=== PATIENT | male | born 1960 | race Caucasian/White ===

== ENCOUNTER 2017-06-22 10:09 | Inpatient (IN) ==
[2017-06-22] MEDS ORDERED: Aspirin 81 MG TAB.CHEW PO ONE (10:16)
[2017-06-22] MEDS ORDERED: Ondansetron 4 MG/2 ML VIAL IVP ONE (10:16)
[2017-06-22] MEDS ORDERED: *HR* FentaNYL (PF) 100 MCG/2 ML VIAL IVP ONE (10:17)
--- NOTE | 2017-06-22 10:18 | Emergency Department Note ---
Disposition Clinical Impression: Chest pain Qualifiers: Chest pain type: unspecified Qualified Code(s): R07.9 - Chest pain, unspecified Disposition: Admitted As Inpatient Condition: Good Referrals: Scott Rolon MD [Primary Care Provider] - Forms: ED Satisfaction Letter Time of Disposition: 12:54 General Adult HPI - General Chief complaint: ED Chest Pain Stated complaint: chest pain Time Seen by Provider: 06/22/17 10:12 Nursing Notes Reviewed: Yes Vital Signs Reviewed: Yes - History of Present Illness HPI Narrative: 2 week history of left-sided chest pain. Sharp in nature. Radiates down left arm. No alleviating factors. Provoked by deep breathing. Does have a productive cough with yellow sputum. - Related Data Home Medications Medication Instructions Recorded Confirmed No Known Home Drugs 06/22/17 06/22/17 Allergies Allergy/AdvReac Type Severity Reaction Status Date / Time No Known Allergies Allergy Verified 07/01/16 14:06 All systems ED: reviewed and negative except as stated. Constitutional: Reports: chills. Denies: fever ENT ED: Denies: congestion Cardiovascular: Reports: chest pain. Denies: palpitations, syncope Respiratory: Reports: cough, dyspnea, sputum production (Yellow). Denies: wheezes Gastrointestinal: Denies: abdominal pain, nausea, vomiting, diarrhea Genitourinary: Denies: urgency, dysuria, frequency Musculoskeletal: Denies: back pain, neck pain Integumentary: Denies: rash, abrasion Neurological: Denies: headache, weakness Past Medical History - Past Medical History Attestation: Yes The following information was validated with the patient. Source: patient Medical history: Reports: cancer, COPD Psychiatric history: Reports: depression - Social History Smoking Status: Current every day smoker Smokeless Tobacco Status: No Alcohol use: Reports: none Drug use: Reports: none Physical Exam - General Limitations: no limitations General appearance: alert, in no apparent distress - Head Head exam: atraumatic, normocephalic, normal inspection - Eye Eye exam: Present: normal appearance, PERRL, EOMI. Absent: scleral icterus - ENT ENT exam: normal exam, normal oropharynx, mucous membranes moist - Neck Neck exam: Present: normal inspection, full ROM, trachea midline - Chest Chest inspection: Present: normal inspection, symmetric chest wall rise. Absent : tenderness - Respiratory Respiratory exam: Present: normal lung sounds bilaterally. Absent: respiratory distress, accessory muscle use - Cardiovascular Cardiovascular exam: Present: regular rate, normal rhythm, normal heart sounds - Abdominal Exam Abdominal exam: Present: soft, Non-Tender. Absent: distention, guarding, rebound, rigidity, organomegaly - Extremities Exam Extremities exam: Present: normal inspection, full ROM, normal capillary refill. Absent: tenderness, pedal edema - Back Exam Back exam: Present: normal inspection, full ROM. Absent: tenderness - Neurological Exam Neurological exam: Present: alert, oriented X3 - Psychiatric Psychiatric exam: Present: normal affect, normal mood - Skin Skin exam: Present: warm, dry, intact, normal color. Absent: rash, cyanosis, diaphoresis Course Course Narrative: 2 week history of left-sided chest pain. Does have associated nausea as well as shortness of breath. Is a smoker. Does have a cardiac history in his family. No cardiac history for him. Does have a history of COPD. We will provide patient with aspirin and nitroglycerin. We will get an EKG as well as a chest x-ray and basic lab workup on patient. He states that he has had no relieving factors with this. The patient has been intermittent normal left side of his chest. Does also radiate down his left arm. Lung sounds are Clear. He does report a productive cough with a yellow sputum. - Reevaluation(s) Reevaluation #1: Pt does have some ST depressions in his lateral leads. Does have a significant family history of cardiac problems he is a smoker. He had significant relief with 3 nitroglycerin. He went down to a 1 out of 10 on his chest pain. We will admit patient to the hospital for chest pain. - Consultations Consultation #1: Dr Barker accepted Pt in stable condition. Time: 12:47 Vital Signs Temperature 97.9 F 06/22/17 10:13 Pulse Rate 78 06/22/17 10:13 Respiratory Rate 15 06/22/17 10:13 Blood Pressure 171/83 06/22/17 10:13 O2 Sat by Pulse Oximetry 100 06/22/17 10:13 Temperature 97.9 F 06/22/17 10:32 Pulse Rate 66 06/22/17 12:16 Respiratory Rate 15 06/22/17 12:16 Blood Pressure 115/76 06/22/17 12:16 O2 Sat by Pulse Oximetry 99 06/22/17 12:16 Oxygen Delivery Oxygen Delivery Room Air Medical Decision Making - Medical Records Medical records reviewed: Yes I reviewed the patient's medical records. - Lab Data Lab results reviewed: Yes I reviewed the patient's lab results. Result diagrams: 06/22/17 10:25 06/22/17 10:25 Lab Results 06/22/17 06/22/17 Range/Units 10:25 10:25 WBC 9.6 (4.3-11.1) K/mcL RBC 5.00 (4.19-5.50) M/mcL Hgb 15.7 (12.9-16.9) g/dL Hct 46.7 (37.5-50.1) % MCV 93.4 (83.0-100.0) fL MCH 31.4 (28.0-33.3) pg MCHC 33.6 (31.6-35.5) g/dL RDW 13.6 (11.5-14.5) % Plt Count 469 H (140-400) K/mcL MPV 8.8 L (9.4-12.4) fL Immature Gran % 0.2 (0-4) % Seg Neutrophils % 45.9 % Lymphocytes % 33.7 % Monocytes % 12.4 % Eosinophils % 6.2 % Basophils % 1.6 % Neutrophils # 4.4 (1.6-8.9) K/mcL Lymphocytes # 3.2 (0.6-4.6) K/mcL Monocytes # 1.2 (0.0-1.3) K/mcL Eosinophils # 0.6 (0.0-0.6) K/mcL Basophils # 0.2 (0.0-0.2) K/mcL Sodium 137 (136-145) mEq/L Potassium 4.1 (3.5-5.1) mEq/L Chloride 104 (98-107) mEq/L Carbon Dioxide 27 (23-29) mEq/L BUN 14 (6-20) mg/dL Creatinine 0.94 (0.70-1.30) mg/dL Est GFR ( Amer) > 60 (> 60) Est GFR (Non-Af Amer) > 60 (> 60) BUN/Creatinine Ratio 15 (6-26) Glucose 90 (70-105) mg/dL Calculated Osmolality 284 (280-300) Calcium 9.4 (8.6-10.3) mg/dL Troponin I 0.03 (< 0.04) ng/mL - Radiology Data Radiology results reviewed: Yes I reviewed the patient's radiology results. Heart Score - Score History: Moderately Suspicious EKG: Non Specific repolarisation Disturbance Age: 45-65 Risk Factors: 1-2 risk factors Troponin: Less than normal limit HEART Score Total: 4
--- NOTE | 2017-06-22 10:20 | Emergency Department Note ---
Disposition Clinical Impression: Chest pain Disposition: Admitted As Inpatient Condition: Good General Adult HPI - General Chief complaint: ED Chest Pain Stated complaint: chest pain Time Seen by Provider: 06/22/17 10:12 Nursing Notes Reviewed: Yes Vital Signs Reviewed: Yes - Related Data Home Medications Medication Instructions Recorded Confirmed No Known Home Drugs 06/22/17 06/22/17 Allergies Allergy/AdvReac Type Severity Reaction Status Date / Time No Known Allergies Allergy Verified 07/01/16 14:06 Past Medical History - Past Medical History Medical history: Reports: cancer, COPD Psychiatric history: Reports: depression - Social History Smoking Status: Current every day smoker Smokeless Tobacco Status: No Alcohol use: Reports: none Drug use: Reports: none Course Vital Signs Temperature 97.9 F 06/22/17 10:13 Pulse Rate 78 06/22/17 10:13 Respiratory Rate 15 06/22/17 10:13 Blood Pressure 171/83 06/22/17 10:13 O2 Sat by Pulse Oximetry 100 06/22/17 10:13 Temperature 98.0 F 06/22/17 13:53 Pulse Rate 66 06/22/17 13:53 Respiratory Rate 18 06/22/17 13:53 Blood Pressure 118/77 06/22/17 13:53 O2 Sat by Pulse Oximetry 99 06/22/17 13:55 Oxygen Delivery Oxygen Delivery Room Air Medical Decision Making - MDM Narrative Medical decision making narrative: This documentation is done with the assistance of Dragon dictation. Despite efforts made to ensure accuracy, there may be inaccuracies in bed maker or spelling and typographical errors. I examined this patient and my medical decision-making was reviewed with the Resident Physician. I agree with the documented findings, disposition and treatment plan as described except to the extent set forth below. Patient seen on arrival to bedside with Dr. Mabry, I agree with his evaluation and management plan, supervised the care the patient's stay. Patient's had intermittent chest pain for 2 weeks. Does not take any medicines. He is a smoker. He has been coughing up yellow sputum. Denies any chest injuries. I do a cardiac workup on him and reassess. Most likely will need admission. 1013 hrs.: Patient in EKG performed shows a sinus rhythm rate is 80, VT interval is 1:15 QRS is 85 QTc is 388, does have some depression in the inferior leads and flattening. Compared this with EKG that was done in 2017 shows no changes except for rate. And does have a flipped T-wave in lead 3 but not aVF or lead 2. 1136 hrs.: Patient's pain-free at this time. We will recheck an EKG and speak with hospitalist for admission. Impressions chest pain rule out ACS. His heart score is a 4. Chest X-Ray 06/22/17 10:29 IMPRESSION: COPD. No acute cardiopulmonary process. D/ / 06/22/2017 11:06:57 Mirtha Rhodes MD / sia Interpreting Provider: Mirtha Rhodes MD 1202 hrs.: Repeat EKG sinus rhythm, rate is 62, QRS is 72, QTC is 391, no signs of ischemia, chest pain is resolved. Patient hospice for admission - Lab Data Result diagrams: 06/22/17 10:25 06/22/17 10:25 Lab Results 06/22/17 06/22/17 Range/Units 10:25 10:25 WBC 9.6 (4.3-11.1) K/mcL RBC 5.00 (4.19-5.50) M/mcL Hgb 15.7 (12.9-16.9) g/dL Hct 46.7 (37.5-50.1) % MCV 93.4 (83.0-100.0) fL MCH 31.4 (28.0-33.3) pg MCHC 33.6 (31.6-35.5) g/dL RDW 13.6 (11.5-14.5) % Plt Count 469 H (140-400) K/mcL MPV 8.8 L (9.4-12.4) fL Immature Gran % 0.2 (0-4) % Seg Neutrophils % 45.9 % Lymphocytes % 33.7 % Monocytes % 12.4 % Eosinophils % 6.2 % Basophils % 1.6 % Neutrophils # 4.4 (1.6-8.9) K/mcL Lymphocytes # 3.2 (0.6-4.6) K/mcL Monocytes # 1.2 (0.0-1.3) K/mcL Eosinophils # 0.6 (0.0-0.6) K/mcL Basophils # 0.2 (0.0-0.2) K/mcL Sodium 137 (136-145) mEq/L Potassium 4.1 (3.5-5.1) mEq/L Chloride 104 (98-107) mEq/L Carbon Dioxide 27 (23-29) mEq/L BUN 14 (6-20) mg/dL Creatinine 0.94 (0.70-1.30) mg/dL Est GFR ( Amer) > 60 (> 60) Est GFR (Non-Af Amer) > 60 (> 60) BUN/Creatinine Ratio 15 (6-26) Glucose 90 (70-105) mg/dL Calculated Osmolality 284 (280-300) Calcium 9.4 (8.6-10.3) mg/dL Troponin I 0.03 (< 0.04) ng/mL
[2017-06-22 10:38] LABS: Basophils # 0.2 K/mcL (0.0-0.2); Basophils % 1.6 %; Eosinophils # 0.6 K/mcL (0.0-0.6); Eosinophils % 6.2 %; Hematocrit 46.7 % (37.5-50.1); Hemoglobin 15.7 g/dL (12.9-16.9); Immature Granulocytes % 0.2 % (0-4); Lymphocytes # 3.2 K/mcL (0.6-4.6); Lymphocytes % 33.7 %; Mean Corpuscular HGB Conc 33.6 g/dL (31.6-35.5); Mean Corpuscular Hemoglobin 31.4 pg (28.0-33.3); Mean Corpuscular Volume 93.4 fL (83.0-100.0); Mean Platelet Volume 8.8 fL (9.4-12.4); Monocytes # 1.2 K/mcL (0.0-1.3); Monocytes % 12.4 %; Neutrophils # 4.4 K/mcL (1.6-8.9); Platelet Count 469 K/mcL (140-400); Red Cell Distribution Width 13.6 % (11.5-14.5); Segmented Neutrophils % 45.9 %
[2017-06-22] MEDS: Nitroglycerin 0.4 MG TAB.SUBL SL ONE ×3 (10:40→10:55)
[2017-06-22 11:01] LABS: Troponin I 0.03 ng/mL (< 0.04)
[2017-06-22 11:02] LABS: BUN/Creatinine Ratio 15 (6-26); Blood Urea Nitrogen 14 mg/dL (6-20); Calcium 9.4 mg/dL (8.6-10.3); Carbon Dioxide 27 mEq/L (23-29); Chloride 104 mEq/L (98-107); Glucose 90 mg/dL (70-105); Osmolality,Calculated 284 (280-300); Potassium 4.1 mEq/L (3.5-5.1); Sodium 137 mEq/L (136-145); eGFR For African Americans > 60 (> 60); eGFR For Non-African Americans > 60 (> 60)
--- NOTE | 2017-06-22 14:27 | Internal Med History&Physical ---
Date of Encounter: 06/22/17 Time of Encounter: 14:21 Assessment and Plan (1) Chest pain Current visit: Yes Status: Acute Patient has 3 weeks of chest pain, most of them exertional, he does have risk factor for history of smoking family history of cad. Chest pain also is worsening by taking deep breaths and a cough, I will check d- dimer if it is positive will need a CT PE study place Tele, follow up 3 trop TTE and stress test Qualifiers: Chest pain type: chest pain due to myocardial ischemia Qualified Code(s): I20.8 - Other forms of angina pectoris (2) Tobacco dependence Current visit: Yes Status: Acute Smoking cessation discussed, we will provide a nicotine patch, he smokes as 3 packs a day (3) COPD (chronic obstructive pulmonary disease) Current visit: Yes Status: Acute We will give her nebulizer as needed, and to steroids inhaler Qualifiers: COPD type: chronic bronchitis Chronic bronchitis type: mixed simple and mucopurulent Qualified Code(s): J41.8 - Mixed simple and mucopurulent chronic bronchitis Internal Medicine - H&P: HPI Chief complaint: chest pain Admitted From: Home Plans for Post Hospital Care: Home History of present illness: Mr. Carballo is a 56 year old male who was in the significant medical history presented to ER for chest pain. Chest pain started as 3 weeks ago, on and off, located to left chest, pressure-like, lasting for few hours, associated with dizziness, shortness of breath, palpation. This morning he had a severe episode , pain is 8 out of 10 constant, he received 3 nitroglycerin, pain down to 1 out of 10. ER, trop is negaitve CXR showed COPD. EKG has some ST depressions in his lateral leads. Patient is haeavy smoker and a significant family history of CAD. admit for chest pain work up. Past Med Surg Social Fam HX - Past Medical History Medical history: cancer, COPD Psychiatric history: depression - Social History Smoking Status: Current every day smoker Smokeless Tobacco Status: No Alcohol use: none Drug use: none - Family History Mother Hx Family Cardiac Disorders: Yes Father Hx Family Cardiac Disorders: Yes Internal Medicine - H&P: Meds No Known Home Drugs 06/22/17 [History] 3 Allergy/AdvReac Type Severity Reaction Status Date / Time No Known Allergies Allergy Verified 07/01/16 14:06 All Systems PM: A 10-system review of systems was performed and is negative for pertinent findings except as documented above in the HPI. - Constitutional Vitals: Temp Pulse Resp BP Pulse Ox 98.0 F 66 18 118/77 99 06/22/17 13:53 06/22/17 13:53 06/22/17 13:53 06/22/17 13:53 06/22/17 13:55 General appearance: Present: cooperative, A&O X 3, pleasant Exam: CONSTITUTIONAL: Patient appears as an age appropriate male well developed, in no acute distress. EYES Clear sclerae, bilateral pupils are equal, reactive to light and accommodation. Extraocular movements are intact RESPIRATORY: No accessory muscle use, bilateral reduced to auscultation, no wheezing, no crackles/rales. CARDIOVASCULAR: Regular heart rate, normal S1 and S2, no murmurs GASTROINTESTINAL: bowel sounds present, soft, no tenderness. No hepatosplenomegaly. No bilateral CVA tenderness MUSCULOSKELETAL: Joints in normal range of motion, no clubbing, no edema, no cyanosis. Bilateral peripheral pulses 2+ LYMPHATIC no lymphadenopathy in neck, groin and axilla bilaterally, no thyromegaly. NEUROLOGIC: CN II to XII are grossly intact, no focal neurological deficit. Deep tendon reflexes 2+ bilaterally. Normal light touch sensation to upper and lower extremity PSYCHIATRIC: Oriented x3, with good insight, mood is euthymic. No hallucinations or delusions. SKIN: Skin warm and dry, no rashes, no open wound. Internal Med - H&P Results - Labs CBC & Chem 7: 06/22/17 10:25 06/22/17 10:25
[2017-06-22] MEDS ORDERED: Nitroglycerin 0.4 MG TAB.SUBL SL PRN (14:32)
--- NOTE | 2017-06-22 14:50 | Electrocardiograph Report ---
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
[2017-06-22] MEDS ORDERED: Ipratropium/Albuterol Neb 3 ML IH PRN (14:52)
--- NOTE | 2017-06-22 14:59 | Electrocardiograph Report ---
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
[2017-06-22] MEDS: Nicotine 21 MG PATCH.TD24 TD SCH (15:28)
[2017-06-22] MEDS: Ringers Solution, Lactated 1,000 ML IVC SCH (15:28)
[2017-06-22] MEDS: Budesonide/Formoterol 80/4.5 MDI IH SCH ×2 (16:03→20:15)
[2017-06-22 17:14] LABS: Amphetamine Screen,Urine Negative ng/mL (Cutoff=1000); Barbiturate Screen,Urine Negative ng/mL (Cutoff=200); Benzodiazepines Screen,Urine Negative ng/mL (Cutoff=200); Cannabinoid Screen,Urine Negative ng/mL (Cutoff = 50); Cocaine Screen,Urine Negative ng/mL (Cutoff= 300); Opiate Screen,Urine Negative ng/mL (Cutoff=300); Phencyclidine Screen,Urine Negative ng/mL (Cutoff=25)
[2017-06-22] MEDS ORDERED: *HR* Heparin 5,000 UNIT/ML VIAL IVP ONE (17:51)
[2017-06-22] MEDS ORDERED: *HR* Heparin 5,000 UNIT/ML VIAL IVP PRN ×2 (17:51)
[2017-06-22 18:16] LABS: Hematocrit 42.3 % (37.5-50.1); Hemoglobin 14.4 g/dL (12.9-16.9); Mean Corpuscular Hemoglobin 31.2 pg (28.0-33.3); Mean Corpuscular Volume 91.6 fL (83.0-100.0); Platelet Count 410 K/mcL (140-400); Red Blood Count 4.62 M/mcL (4.19-5.50); Red Cell Distribution Width 13.4 % (11.5-14.5)
[2017-06-22 18:36] LABS: Prothrombin Time 10.3 Seconds (9.4-12.1)
[2017-06-22 18:39] LABS: Activated Partial Thrombo Time 26.7 Seconds (26.0-36.0)
[2017-06-22] MEDS: Heparin 25,000 UNIT/500 ML D5W 25,000 UNIT/500 ML BAG IVC SCH (19:02)
[2017-06-23] MEDS: Ringers Solution, Lactated 1,000 ML IVC SCH ×3 (01:41→21:21)
[2017-06-23] MEDS: *HR* Morphine 2 MG/ML SYRINGE IVP PRN ×3 (01:41→21:20)
[2017-06-23 01:48] LABS: Basophils # 0.1 K/mcL (0.0-0.2); Eosinophils # 0.7 K/mcL (0.0-0.6); Eosinophils % 6.9 %; Hematocrit 39.9 % (37.5-50.1); Hemoglobin 13.7 g/dL (12.9-16.9); Immature Granulocytes % 0.3 % (0-4); Immature Platelets 2.1 % (1.1-6.1); Lymphocytes # 4.4 K/mcL (0.6-4.6); Lymphocytes % 41.5 %; Mean Corpuscular HGB Conc 34.3 g/dL (31.6-35.5); Mean Corpuscular Hemoglobin 31.8 pg (28.0-33.3); Mean Corpuscular Volume 92.6 fL (83.0-100.0); Mean Platelet Volume 9.5 fL (9.4-12.4); Monocytes # 0.9 K/mcL (0.0-1.3); Monocytes % 8.5 %; Neutrophils # 4.5 K/mcL (1.6-8.9); Platelet Count 435 K/mcL (140-400); Red Blood Count 4.31 M/mcL (4.19-5.50); Red Cell Distribution Width 13.4 % (11.5-14.5); Segmented Neutrophils % 41.8 %
[2017-06-23 01:53] LABS: Prothrombin Time 10.3 Seconds (9.4-12.1)
[2017-06-23 02:11] LABS: Alanine Aminotransferase 17 Units/L (7-52); Albumin 3.7 g/dL (3.5-5.7); Albumin/Globulin Ratio 1.7 (1.1-2.2); Alkaline Phosphatase 69 Units/L (34-104); Aspartate Amino Transferase 17 Units/L (13-39); BUN/Creatinine Ratio 13 (6-26); Bilirubin,Total 0.4 mg/dL (0.3-1.0); Blood Urea Nitrogen 12 mg/dL (6-20); Carbon Dioxide 27 mEq/L (23-29); Chloride 107 mEq/L (98-107); Globulin 2.2 g/dL (2.4-3.5); Glucose 107 mg/dL (70-105); Osmolality,Calculated 288 (280-300); Potassium 3.8 mEq/L (3.5-5.1); Sodium 139 mEq/L (136-145); Total Protein 5.9 g/dL (6.4-8.9); eGFR For African Americans > 60 (> 60); eGFR For Non-African Americans > 60 (> 60)
[2017-06-23] MEDS ORDERED: Regadenoson 0.4 MG/5 ML SYRINGE IVP ONE (06:14)
--- NOTE | 2017-06-23 09:21 | Cardiology Consult Note ---
Date of Encounter: 06/23/17 Time of Encounter: 09:19 Assessment and Plan (1) Unstable angina Current Visit: Yes Status: Acute Crescendo angina currently CCS class III. Peak troponin 0.[address] depressions. Risks benefits and alternatives discussed with the patient regards to a left heart catheter and he agrees to proceed. We will start heparin ACS protocol and load Plavix Discussion w patient/family: The assessment and plan as outlined above was discussed with the patient and/or family members who expressed understanding and agreement. All questions were answered. Thank you for involving us in the care of your patient. Please call with any questions. History of Present Illness Consult date: 06/23/17 Consult reason: Chest pain Chief complaint: Chest Pain History of present illness: Mr. Carballo is a 56 year old male with history of smoking, previous hypertension , presents with chest pain exertional in nature ascribed as dull aching retrosternal associated with diaphoresis and shortness of breath and relieved with rest. EKG unremarkable however presents EKG shows some slight lateral ST changes. Peak troponin 0.04. Progressive symptoms over the last 2 weeks with onset of symptoms with lesser exertion. Past Med Surg Social Fam HX - Past Medical History Medical history: cancer, COPD Psychiatric history: depression - Social History Smoking Status: Current every day smoker Smokeless Tobacco Status: No Alcohol use: none Drug use: none - Family History Mother Hx Family Cardiac Disorders: Yes Father Hx Family Cardiac Disorders: Yes Medications and Allergies No Known Home Drugs 06/22/17 [History] 3 Allergy/AdvReac Type Severity Reaction Status Date / Time No Known Allergies Allergy Verified 07/01/16 14:06 All Systems Review: The remainder of the systems were reviewed and are negative Physical Examination Vital Signs, Last 4 Hours Temp Pulse Resp BP Pulse Ox 06/23/17 07:16 97.9 F 76 18 138/83 97 General: Conversant, No Apparent Distress HEENT: Atraumatic, Normocephaly, Mucus Membranes Moist Neck: No JVD, Normal carotid pulses Cardiac: Reg Rate and Rhythm, Normal S1 and S2, No Murmur Lungs: Normal Breath Sounds, No Wheeze, Rales, Rhonchi Neuro: Alert and responsive, No focal deficits noted Abdomen: Soft, Non-Tender Skin: No rashes noted on visualized skin Musculoskeletal: No Chest Wall Tenderness Extremities: No Clubbing, No Cyanosis, No Edema, Normal Pulses Results 06/23/17 00:58 06/23/17 00:58 Lab Results 06/22/17 06/22/17 06/22/17 14:46 16:33 18:02 WBC 9.6 Hgb 14.4 Hct 42.3 Plt Count 410 H INR APTT D-Dimer 446 Sodium Potassium Chloride Carbon Dioxide BUN Creatinine Glucose Calcium Magnesium Total Bilirubin AST ALT Alkaline Phosphatase Troponin I 0.04 H* 06/22/17 06/22/17 06/23/17 18:02 21:56 00:58 WBC 10.6 Hgb 13.7 Hct 39.9 Plt Count 435 H INR 1.0 APTT 26.7 D-Dimer Sodium Potassium Chloride Carbon Dioxide BUN Creatinine Glucose Calcium Magnesium Total Bilirubin AST ALT Alkaline Phosphatase Troponin I < 0.03 06/23/17 06/23/17 06/23/17 00:58 00:58 00:58 WBC Hgb Hct Plt Count INR 1.0 APTT 66.0 H D D-Dimer Sodium 139 Potassium 3.8 Chloride 107 Carbon Dioxide 27 BUN 12 Creatinine 0.92 Glucose 107 H Calcium 9.0 Magnesium 2.0 Total Bilirubin 0.4 AST 17 ALT 17 Alkaline Phosphatase 69 Troponin I 06/23/17 06/23/17 05:06 05:06 WBC Hgb Hct Plt Count INR APTT 45.5 H D-Dimer Sodium Potassium Chloride Carbon Dioxide BUN Creatinine Glucose Calcium Magnesium Total Bilirubin AST ALT Alkaline Phosphatase Troponin I 0.03 Consult Discharge Plan - Plan Referrals: Scott Rolon MD [Primary Care Provider] -
[2017-06-23] MEDS: Budesonide/Formoterol 80/4.5 MDI IH SCH ×2 (10:25→19:56)
[2017-06-23] MEDS: Aspirin 81 MG TAB.CHEW PO SCH (11:57)
[2017-06-23] MEDS: Nicotine 21 MG PATCH.TD24 TD SCH ×3 (11:58→18:48)
[2017-06-23] MEDS ORDERED: ISOVUE-370 200 ML INFUS..BTL IV ONE (15:07)
[2017-06-23] MEDS ORDERED: Heparin 1,000 UNITS/500 mL 500 ML ONE (15:07)
[2017-06-23] MEDS ORDERED: Verapamil 5 MG/2 ML VIAL ONE (15:07)
[2017-06-23] MEDS ORDERED: 0.9 % Sodium Chloride 1,000 ML ONE ×2 (15:07→15:25)
[2017-06-23] MEDS ORDERED: *HR* Heparin 10,000 UNIT/10 ML VIAL ONE (15:07)
[2017-06-23] MEDS ORDERED: Nitroglycerin 1,000 MCG/10 ML VIAL IV ONE (15:08)
[2017-06-23] MEDS ORDERED: *HR* Midazolam HCl 2 MG/2 ML VIAL ONE (15:43)
[2017-06-23] MEDS ORDERED: *HR* FentaNYL (PF) 100 MCG/2 ML VIAL ONE (15:43)
--- NOTE | 2017-06-23 15:45 | Pre-Sedation Evaluation ---
Pre-sedation evaluation - Pre-sedation checklist Date of procedure: 06/23/17 Procedure: heart cath Recent Vitals: Last Vital Signs Temp 98.1 F 06/23/17 10:46 Pulse 70 06/23/17 10:46 Resp 20 06/23/17 10:46 BP 137/81 06/23/17 10:46 Pulse Ox 98 06/23/17 10:46 H&P (including ROS) documented in medical record: Yes Previous reaction to sedatives/anesthetics: No Dietary Status: NPO after Midnight Dentition: No loose teeth or bridges ASA Classification *see protocol: CLASS II-Mild systemic disease Plan of Care: Pt appropriate candidate for procedure/moderate/conscious sedation , Risks/benefits of procedure/sedation discussed w/ patient/family
[2017-06-23] MEDS ORDERED: Tirofiban 12.5 MG/250ML 12.5 MG/250 ML BAG ONE (16:06)
[2017-06-23] MEDS ORDERED: *HR* Ticagrelor 90 MG TABLET ONE (16:20)
[2017-06-23] MEDS ORDERED: Ondansetron 4 MG/2 ML VIAL IVP PRN (16:27)
[2017-06-23] MEDS ORDERED: Tirofiban 12.5 MG/250ML 12.5 MG/250 ML BAG IVC SCH (16:30)
--- NOTE | 2017-06-23 16:32 | Internal Med Progress Note ---
Date of Encounter: 06/23/17 Time of Encounter: 16:29 - Assessment and plan (1) Unstable angina Current Visit: Yes Status: Acute Assessment and plan: presented with chest pain and SOB. Troponin peaked at 0.04, EKG with mild lateral ST depressions. TTE with EF 60%, moderate diastolic dysfunction, mild- to-moderate mitral regurgitation, no wall motion abnormalities. Evaluated by cardiology who recommended left heart catheterization. Keep NPO, heparin gtt, plavix load. Cardiology following (2) COPD (chronic obstructive pulmonary disease) Current Visit: Yes Status: Acute Assessment and plan: per hx. CXR with hyperinflated lungs suggesting COPD. No evidence of exacerbation on exam. Continue breathing treatments, inhalers Qualifiers: COPD type: chronic bronchitis Chronic bronchitis type: mixed simple and mucopurulent Qualified Code(s): J41.8 - Mixed simple and mucopurulent chronic bronchitis (3) Tobacco dependence Current Visit: Yes Status: Acute Assessment and plan: Current smoker, cessation advised but not likely. Declining NRT at this time. (4) DVT prophylaxis Current Visit: Yes Status: Acute Assessment and plan: heparin gtt - Time Spent With Patient Total time spent is greater than 50% in coordination of care (as documented) at patient's floor/unit and/or counseling patient: - Constitutional Vitals: Temp Pulse Resp BP Pulse Ox 98.1 F 70 20 137/81 98 06/23/17 10:46 06/23/17 10:46 06/23/17 10:46 06/23/17 10:46 06/23/17 10:46 General appearance: Present: cooperative, A&O X 3, pleasant Internal Medicine: Result - Labs CBC & Chem 7: 06/23/17 00:58 06/23/17 00:58 Labs: Short CBC 06/22/17 06/23/17 Range/Units 18:02 00:58 WBC 9.6 10.6 (4.3-11.1) K/mcL Hgb 14.4 13.7 (12.9-16.9) g/dL Hct 42.3 39.9 (37.5-50.1) % Plt Count 410 H 435 H (140-400) K/mcL Neutrophils # 4.5 (1.6-8.9) K/mcL BMP 06/23/17 00:58 Sodium 139 Potassium 3.8 Chloride 107 Carbon Dioxide 27 BUN 12 Creatinine 0.92 Glucose 107 H Calcium 9.0 Cardiac Enzymes 06/22/17 06/22/17 06/23/17 Range/Units 16:33 21:56 05:06 Troponin I 0.04 H* < 0.03 0.03 (< 0.04) ng/mL Liver Function 06/23/17 Range/Units 00:58 Total Bilirubin 0.4 (0.3-1.0) mg/dL AST 17 (13-39) Units/L ALT 17 (7-52) Units/L Alkaline Phosphatase 69 (34-104) Units/L Albumin 3.7 (3.5-5.7) g/dL - ABG Interpretation ABG results: PT/INR, D-dimer PT 10.3 Seconds (9.4-12.1) 06/23/17 00:58 D-Dimer 446 ng/mLFEU (0-500) 06/22/17 14:46 - Impressions Impressions Echocardiogram 06/23/17 14:32 Impressions: LVEF 60%. Normal LV wall motion and thickening. Moderate left ventricular diastolic dysfunction. Normal right ventricular structure and function. Mild-moderate mitral regurgitation. No pulmonary hypertension. Left Ventricular Wall Motion: Rest Echo Findings All wall segments showed normal motion. Findings: Study Quality * Technically adequate exam. ECG Findings * Normal sinus rhythm. Left Ventricle * LVEF 60%. * Normal LV chamber size, wall thickness and function. * Moderate left ventricular diastolic dysfunction. Right Ventricle * Normal right ventricular structure and function. Left Atrium * Normal left atrial size. Right Atrium * Normal right atrial size. Mitral Valve * Normal mitral valve structure. * No mitral stenosis. * Mild-moderate mitral regurgitation. Aortic Valve * No aortic regurgitation. * Trileaflet aortic valve. * No aortic stenosis. Tricuspid Valve * Normal tricuspid valve structure. * Trace tricuspid regurgitation. * Estimated RA pressure is 3 mmHg. * Estimated RVSP is 30 mmHg. * No pulmonary hypertension. Pulmonic Valve * Pulmonic valve is not well visualized. * No pulmonic stenosis. * No pulmonic regurgitation. Pulmonary Artery * Pulmonary artery not well visualized. Aorta * Normally sized aortic root. Pericardium * There is no pericardial effusion present. Interatrial Septum * No evidence of PFO by color Doppler. IVC * Normal IVC dimensions and inspiratory collapse. Consult Discharge Plan - Plan Referrals: Scott Rolon MD [Primary Care Provider] -
--- NOTE | 2017-06-23 16:39 | Invasive Diagnostic Lab Proc ---
Name: Michele Carballo Date of Study: 06/23/2017 Date: 1960 Ht: 64.2in Medical Record#: [id number] Age: 56 Wt: 158.73lb Gender: Male BSA: 1.78 Order #: [id number] BMI: 27.1 Physicians Procedure Physician: Anselmo Villarreal MD, [facility] Referring MD: Referring MD: Staff Name Position Time In Franca Haines RT (R) Monitor 03:29 PM AinsleyBrandy RT (R) Scrub 03:29 PM Dean Kirkland RN Ticketing Clerk 03:29 PM Sera Kumar RN Ticketing Clerk 03:29 PM Procedures Performed Procedure L HRT ARTERY/VENTRICLE ANGIO PRQ CARD OMAR STENT W/ANGIO 1 VSL Pre-Procedure Checklist Informed consent is complete signed and on chart. H&P is on chart. ID band is on and ID verified with patient. Patient NPO for procedure The procedure was described for the patient and questions were answered. Blood Pressure: 138/83 ECG is on chart. Plan of Care Patient will tolerate the procedure without complications. Adequate level of comfort will be maintained. Hemodynamics will remain stable Patient will recover from procedure without complications. Respiratory function will be maintained. Cardiac rhythm will remain stable. Patient temperature will be maintained. Patient and/or family have verbalized understanding of the procedure. Patient Education Chief Complaint/Reason for Test: Cardiac Cath Developmental Category: Adult (18-64 years) Developmentally Appropriate for Age: Yes Learning Barriers: None Education Needs: Procedure Education Method: Verbal Information Taught: Cardiac Cath Educational Evaluation: Able to repeat information Intravenous Access Time IV Size Location DC'd Fluid/Drip Rate Units RN 03:30 PM 20g 1 03/26" Patent On Arrival Rt Antecubital 0.9NaCl 25 ml/hr Dean Kirkland RN Allergies NKDA Vital Signs Time BP (mmHg) HR (bpm) O2 Sat. RR (bpm) LOC 03:30 PM 138 / 83 76 97 % 16 5 = Fully awake and oriented or at pre-proc level 03:29 PM / % 5 = Fully awake and oriented or at pre-proc level 03:29 PM / % 5 = Fully awake and oriented or at pre-proc level 03:44 PM / % 4 = Oriented but drowsy 03:59 PM / % 4 = Oriented but drowsy 03:46 PM 157 / 76 65 100 % 03:50 PM 153 / 71 67 100 % 03:55 PM 124 / 61 66 100 % 04:00 PM 124 / 66 78 92 % 04:05 PM 136 / 65 70 95 % 04:10 PM 123 / 66 72 94 % 04:15 PM 138 / 76 71 96 % 04:20 PM 127 / 74 70 97 % 04:14 PM / % 4 = Oriented but drowsy Procedural Medications Time Medication Dose Units Method Given By 03:55 PM Oxygen 2 L/min nasal cannula Dean Kirkland RN 03:55 PM Versed 2 mg Intravenous Dean Kirkland RN 03:55 PM Fentanyl 50 mcg Intravenous Dean Kirkland RN 03:55 PM Lidocaine 2% 0.5 ml Subcutaneous Anselmo Villarreal MD, FACC 03:56 PM Heparin 4000 units Nitroglycerin 200 mcg Verapamil 2.5 mg Intraarterial Anselmo Villarreal MD, FACC 04:04 PM Aggrastat Bolus: 37.5 ml Intravenous Dean Kirkland RN 04:04 PM Aggrastat 12.5mg/250ml 13.5 ml Intravenous Dean Kirkland RN 04:08 PM Nitroglycerin 200 mcg Intracoronary Anselmo Villarreal MD 04:09 PM Heparin 2000 units Intravenous Dean Kirkland RN 04:22 PM Brilinta 180 mg Orally Dean Kirkland RN ASA Classification: CLASS II- Mild systemic disease (i.e. well-controlled diabetes, hypertension, asthma, cigarette smoking) Ju Score Preprocedure Postprocedure Activity 2- Moves 4 extremities sustained head lift Activity 2- Moves 4 extremities sustained head lift Circulation 2- SBP +/= 20 points of pre-anesthetic level Circulation 2- SBP +/= 20 points of pre-anesthetic level Consciousness 2- Awake and alert oriented x 3 Consciousness 2- Awake and alert oriented x 3 O2 Saturation 2- Able to maintain O2 satruation of 92% on room air O2 Saturation 2- Able to maintain O2 satruation of 92% on room air Respiratory 2- Able to deep breathe and cough well Respiratory 2- Able to deep breathe and cough well Total Score 10 Total Score 10 Contrast Agent: Isovue Diagnostic Contrast: 112 ml Total Contrast: 112 ml Fluoro Dose: 619 mGy Procedure Log Time Note Enter By 03:29 PM Pt arrived to chemical processing laborer 2 at 15:29 twilson 03:29 PM Patient charges- Angio tray pack, Navilyst 3mm J, Pulse Oximetry and ACIST tubing and transducer twilson 03:29 PM IV Supplies used: J loop Angio Cath. twilson 03:29 PM Case Delayed no twilson 03:29 PM Franca Haines RT (R) Position: Monitor Time in: 15:29 twilson 03:29 PM Brandy Schmitz RT (R) Position: Scrub Time in: 15: twilson 03:29 PM Dean Kirkland RN Position: Ticketing Clerk Time in: 15: twilson 03:29 PM Sera Kumar RN Position: Ticketing Clerk Time in: 15: twilson 03:29 PM Time: 15:29 Patient comfortable and pain free: Yes twilson 03:29 PM Time: 15:LOC: 5 = Fully awake and oriented or at pre-proc level twilson 03:39 PM Physician arrived 15:39 twilson 03:39 PM Meet and greet completed twilson 03:39 PM Sign in performed according to hospital policy. twilson 03:39 PM Procedure start 15:39 twilson 03:39 PM CathStat 03:44 PM Vitals capture started with the following parameters, Patient=Adult, Interval=5 min, Initial Lretccti=935 mmHg, Deflation Rate=3 mmHg, Cuff placed on Right Arm 03:44 PM Time: 15:29 Patient comfortable and pain free: Yes twilson 03:44 PM Time: 15:29LOC: 5 = Fully awake and oriented or at pre-proc level twilson 03:44 PM Hair removed from procedure site in procedure lab using clippers. Right wrist prepped with Chloraprep by Franca Haines RT (R), then patient was draped. Skin intact. twilson 03:45 PM Hair removed from procedure site in procedure lab using clippers. Right groin prepped with Chloraprep by Sera Kumar RN, then patient was draped. Skin intact. twilson 03:46 PM HR=65 bpm, NGBP=316/76 mmhg, AzY1=874.0 % 03:47 PM Clinical Presentation: Unstable angina twilson 03:48 PM Pressure channel 1 zeroed. 03:50 PM HR=67 bpm, ZZBZ=932/71 mmhg, UhE2=590.0 % 03:51 PM ASA Class CLASS II- Mild systemic disease (i.e. well-controlled diabetes, hypertension, asthma, cigarette smoking) twilson 03:55 PM Time: 15:55 Oxygen on at 2 L/min per nasal cannula by Dean Kirkland RN : PM Time: 15:55 Versed 2 mg Intravenous Given by Dean Kirkland RN : PM Time: 15:55 Fentanyl 50 mcg Intravenous Given by Dean Kirkland RN ilson :55 PM HR=66 bpm, VMKP=373/61 mmhg, JkQ8=954.0 % 03:55 PM Time out performed according to hospital policy PM Time: 15:55 0.5 ml Lidocaine 2% to right radial Subcutaneous Given by Anselmo Villarreal MD, FACC twilson :56 PM Access obtained by percutaneous puncture. 6Fr 10cm Terumo Glidesheath sheath placed in right Radial artery. [id number] tw:56 PM Time: 15:56 Patient given 4,000 units Heparin, 200 mcg Nitroglycerin, and 2.5 mg Verapamil Intraarterial by Anselmo Villarreal MD, [facility]. This is given to reduce risk of vessel spasm and thrombosis. tw:57 PM 5Fr TIG catheter inserted over the wire [facility] twilson :57 PM Catheter selectively placed in left ventricle twilson 03:57 PM Wire removed, intact. twilson 03:58 PM Bolus angiogram of left Ventricle complete: 10 ml/sec for a total of 20 mls twilson :58 PM Recorded Pressure: LV, HR=76, Condition=Condition 1 (Left Ventricle) LV 89/0/12 03:58 PM Recorded Pressure: LV, Ao, HR=72, Condition=Condition 1 (Left Ventricle) LV 116/-2/8, (Aorta) Ao 108/60/80 03:59 PM Recorded Pressure: Ao, HR=71, Condition=Condition 1 (Aorta) Ao 98/65/80 03:59 PM Catheter pulled back. twilson :59 PM LCA angiography performed in multiple views. tw:59 PM Time: 15:44 Patient comfortable and pain free: Yes tw:59 PM Time: 15:44LOC: 4 = Oriented but drowsy twilson 03:59 PM PCI Status Urgent twilson 04:00 PM PCI Indication: Other twilson 04:00 PM PCI lesion in Mid LAD. Pre Stenosis: 99 Pre CARLOS Flow: 3: Complete and Brisk Flow/Perfusion twilson 04:00 PM Mid/Distal Left Anterior Descending Coronary Artery and diagonal branches with 99% stenosis. If graft is supplying this area, 0 % stenosis twilson 04:00 PM HR=78 bpm, USST=835/66 mmhg, SpO2=92.0 % 04:00 PM Inflation device was opened. tw 04: PM Wire reinserted. twilson 04: PM Catheter removed, intact. tw:02 PM 5Fr 3DRC catheter inserted over the wire [id number] twilson :02 PM Wire removed, intact. tw 04:02 PM Coronary Dominance: right twilson 04:03 PM Lesion found in Mid RCA. Pre Stenosis: 20 Pre CARLOS Flow: twilson 04:03 PM Lesion found in Right PDA. Pre Stenosis: 30 Pre CARLOS Flow: tw 04:03 PM Right Coronary, Right Posterior Descending Arteries with Right Posterolateral and Acute Marginal branches with 20 % stenosis. If graft is supplying this area, 0 % stenosis twilson 04:03 PM RCA angiography performed in multiple views. tw: PM Wire reinserted and catheter removed, intact. tw: PM 6Fr RBL 3.5 Convey guide catheter was used to cannulate the PCI vessel successfully. reused? No : PM Time: 16:04 Aggrastat Bolus: 37.5 ml Intravenous Given by Dean Kirkland RN Vidal pump :05 PM Time: 16:04 Aggrastat 12.5mg/250ml 13.5 ml Intravenous Given by Dean Kirkland RN Vidal pump twilson 04:05 PM Recorded Pressure: Ao, HR=71, Condition=Condition 1 (Aorta) Ao 124/71/94 04:05 PM HR=70 bpm, JEKL=436/65 mmhg, SpO2=95.0 % 04:05 PM Recorded Pressure: Ao, HR=71, Condition=Condition 1 (Aorta) Ao 104/60/78 04:06 PM .014 [place] 190cm guide wire across target lesion- successful. reused? No tw:07 PM 2.0 mm x 12 mm Emerge Monorail balloon across target lesion- successful. reused? No twilson :08 PM Time: 16:08 Nitroglycerin 200 mcg Intracoronary Given by Anselmo Villarreal MD 04:09 PM Time: 16:09 Heparin 2000 units Intravenous Given by Kirkland, Dean RN twilson 04:10 PM HR=72 bpm, WNGV=882/66 mmhg, SpO2=94.0 % 04:11 PM Balloon inflated @ 10 maryann for 24 seconds twilson 04:13 PM Balloon catheter removed intact. twilson 04:14 PM 2.5mm x 16mm Synergy drug-eluting stent across target lesion- successful Lot #[id number] twilson 04:14 PM Recorded Pressure: Ao, HR=72, Condition=Condition 1 (Aorta) Ao 113/73/91 04:14 PM Time: 15:59LOC: 4 = Oriented but drowsy twilson 04:15 PM Time: 15:59 Patient comfortable and pain free: Yes twilson 04:15 PM HR=71 bpm, PQGO=904/76 mmhg, SpO2=96.0 % 04:15 PM Stent deployed @ 11 maryann for 23 seconds twilson 04:16 PM Recorded Pressure: Ao, HR=74, Condition=Condition 1 (Aorta) Ao 130/69/92 04:16 PM Stent delivery system removed intact. twilson 04:17 PM 2.75 mm x 6mm NC Trek Rx balloon across target lesion- successful. reused? No twilson 04:18 PM Balloon inflated @ 14 maryann for 20 seconds twilson 04:18 PM Balloon inflated @ 16 maryann for 15 seconds twilson 04:18 PM Recorded Pressure: Ao, HR=71, Condition=Condition 1 (Aorta) Ao 119/75/95 04:20 PM HR=70 bpm, UQAN=773/74 mmhg, SpO2=97.0 % 04:20 PM Guidewire removed, intact. Balloon removed, intact. Guide catheter removed, intact. twilson 04:20 PM Procedure completed at 16:20 twilson 04:20 PM Did you address CARLOS flow and Dominance? Yes twilson 04:21 PM Sign out completed: Radiation Dose 619.04 mGy Fluoro Time: 6.5 Isovue 370 - 200ml contrast 112 ml given by Anselmo Villarreal MD, [facility]. Complications: NoneCardiac Rehab Consult needed: YesConfirmed administered medications: No twilson 04:22 PM Time: 16:22 Brilinta 180 mg Orally Given by Dean Kirkland RN twilson 04:23 PM Arterial sheath pulled, Vasc Band closure device used and was Successful S/N. twilson : PM 15 ml air in Vasc Band. twilson 04:23 PM Estimated Blood Loss: minimal twilson 04:23 PM Post ECG NSR twilson 04:23 PM Post Blood Pressure 127/74 twilson 04:26 PM 16:26 Post Pulses Bilateral DP & PT 2+ twilson 04:27 PM 16:26 Post Pulses Bilateral radial 2+ twilson 04:27 PM Information taught Cardiac Cath, PCI, and Vasc Band twilson 04:27 PM Education needs Procedure, Plan of Care, and Responsibilities of Patient in Care twilson 04:27 PM Learning barriers :None twilson 04:27 PM Education Methods Verbal twilson 04:27 PM Education evaluation Able to repeat information twilson 04:27 PM Site status No bleeding/hematoma - Rt Wrist as reported by Brandy Schmitz RT (R) at 16:27 twilson 04:27 PM Plavix, Effient or Brilinta given Yes twilson 04:27 PM Delay to floor No twilson 04:27 PM Family placed in consult room. twilson 04:30 PM Report given to Leena BRIGHT Pt taken to 3B Room #24. 16:29 twilson 04:30 PM Time: 16:14LOC: 4 = Oriented but drowsy twilson 04:30 PM Time: 16:15 Patient comfortable and pain free: Yes twilson 04:31 PM Patient out of room: 16:31 twilson Complications Complication None Hemodynamics Pressures Site Systolic/A Wave Diastolic/V Wave Mean LV 89 0 12 LV 116 -2 8 AO 108 60 80 AO 98 65 80 AO 124 71 94 AO 104 60 78 AO 113 73 91 AO 130 69 92 AO 119 75 95 Post Procedure Information Blood Pressure: 127/74 mmHg Rhythm: NSR Post procedural instructions were given Closure Device Time Device Success/Fail 06/23/2017 4:28:00 PM Mechanical Compression Successful Site Checks Time Location Status Staff Sheath In? Note 04:27 PM Rt Wrist No bleeding/hematoma Brandy Schmitz RT (R) Pulses Time Site Pre-Procedure Post-Procedure Note 06/23/2017 3:30:00 PM Bilateral DP & PT 2+ 06/23/2017 3:30:00 PM Bilateral radial 2+ 4:26:00 PM Bilateral DP & PT 2+ 4:26:00 PM Bilateral radial 2+ Updated by Franca Haines RT (R) on 06/23/2017 4:32:35 PM electronically signed on 06/23/2017 4:33:41 PM with status of Final
--- NOTE | 2017-06-23 19:26 | Electrocardiograph Report ---
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
[2017-06-23] MEDS: Heparin 25,000 UNIT/500 ML D5W 25,000 UNIT/500 ML BAG IVC SCH (20:01)
[2017-06-23] MEDS: *HR* Ticagrelor 90 MG TABLET PO SCH (21:29)
[2017-06-24 06:19] LABS: Hematocrit 43.3 % (37.5-50.1); Hemoglobin 14.5 g/dL (12.9-16.9); Mean Corpuscular HGB Conc 33.5 g/dL (31.6-35.5); Mean Corpuscular Hemoglobin 31.4 pg (28.0-33.3); Mean Corpuscular Volume 93.7 fL (83.0-100.0); Mean Platelet Volume 9.2 fL (9.4-12.4); Platelet Count 455 K/mcL (140-400); Red Blood Count 4.62 M/mcL (4.19-5.50); Red Cell Distribution Width 13.6 % (11.5-14.5)
[2017-06-24 06:45] LABS: BUN/Creatinine Ratio 13 (6-26); Blood Urea Nitrogen 11 mg/dL (6-20); Calcium 9.2 mg/dL (8.6-10.3); Carbon Dioxide 24 mEq/L (23-29); Chloride 107 mEq/L (98-107); Chol/HDL Ratio 5.8 (0-4.9); Cholesterol 203 mg/dL (< 200); Glucose 110 mg/dL (70-105); HDL Cholesterol 35 mg/dL (40-59); LDL Cholesterol,Calculated 115 mg/dL (0-99); Osmolality,Calculated 284 (280-300); Potassium 3.8 mEq/L (3.5-5.1); Sodium 137 mEq/L (136-145); Triglycerides 264 mg/dL (< 150); eGFR For African Americans > 60 (> 60); eGFR For Non-African Americans > 60 (> 60)
[2017-06-24] MEDS: Budesonide/Formoterol 80/4.5 MDI IH SCH (08:00)
[2017-06-24] MEDS: *HR* Ticagrelor 90 MG TABLET PO SCH (08:52)
[2017-06-24] MEDS: Nicotine 21 MG PATCH.TD24 TD SCH (08:52)
[2017-06-24] MEDS: Aspirin 81 MG TAB.CHEW PO SCH (08:52)
[2017-06-24 09:04] LABS: Estimated Average Glucose 111 mg/dl; Hemoglobin A1C 5.5 %
--- NOTE | 2017-06-24 11:04 | Cardiology Progress Note ---
Date of Encounter: 06/24/17 Time of Encounter: 10:30 Assessment and Plan (1) Unstable angina Current Visit: Yes Status: Acute Admitted for unstable angina, troponin 0.04. [facility] 06/23/17: s/p successful PTCA/OMAR mLAD; otherwise mild, non-obstructive CAD TTE 06/23/17: LVEF 60%, moderate LVDD, mild-moderate MR, normal wall motion. Has been up ambulating in hallways without symptoms. No issues with cath site. Post PCI discharge instructions discussed including care of site and importance of uninterrupted DAPT (asa + brilinta) for a minimum of 1 year. 30-day supply card of brilinta provided. Will add lose dose betablocker and statin. Continue asa. Cardiac rehab consulted. Follow-up in 5-7 days with [facility], will coordinate appt. (2) Tobacco dependence Current Visit: Yes Status: Acute Smoking cessation counseled provided. Discussion w patient/family: The assessment and plan as outlined above was discussed with the patient and/or family members who expressed understanding and agreement. All questions were answered. Thank you for involving us in the care of your patient. Please call with any questions. The patient will be discussed and reviewed with ; changes to be made accordingly. Subjective Principal diagnosis: UA Interval history: Seen and examined. Denies chest pain/discomfort overnight. No issues with right radial cath site. Has been ambulating in hallways without symptoms. Objective Vital Signs, Last 4 Hours Resp Pulse Ox 06/24/17 08:00 16 99 General: Conversant, No Apparent Distress HEENT: Atraumatic, Normocephaly, Mucus Membranes Moist Cardiac: Reg Rate and Rhythm, Normal S1 and S2 Lungs: Normal Breath Sounds Neuro: Alert and responsive Abdomen: Soft Skin: No rashes noted on visualized skin Musculoskeletal: No Chest Wall Tenderness Extremities: No Edema, Normal Pulses Other: right radial: no hematoma, oozing, or bleeding. +2 radial pulses. Brisk cap refill Results 06/24/17 05:10 06/24/17 05:10 Lab Results 06/24/17 06/24/17 06/24/17 05:10 05:10 05:10 WBC 9.7 Hgb 14.5 Hct 43.3 Plt Count 455 H APTT Sodium 137 Potassium 3.8 Chloride 107 Carbon Dioxide 24 BUN 11 Creatinine 0.86 Glucose 110 H Calcium 9.2 Troponin I 0.14 H* 06/24/17 10:31 WBC Hgb Hct Plt Count APTT 30.9 Sodium Potassium Chloride Carbon Dioxide BUN Creatinine Glucose Calcium Troponin I Active Medications Albuterol/Ipratropium (Duoneb) 3 ml IH [id number] PRN PRN Reason: Shortness Of Breath/Wheezing Stop: 12/22/17 14:53 Aspirin (Aspirin) 81 mg PO DAILY [facility] Stop: 12/23/17 09:01 Last Admin: 06/24/17 08:52 Dose: 81 mg Budesonide/Formoterol Fumarate (Symbicort) 2 puff IH BIDR ANA PRN Reason: Protocol Stop: 12/22/17 15:01 Last Admin: 06/24/17 08:00 Dose: 2 puff Lactated Ringer's (Lactated Ringers) 1,000 mls @ 75 mls/hr IVC .[id number] [facility] Stop: 12/22/17 14:46 Last Admin: 06/23/17 21:21 Dose: 75 mls/hr Morphine Sulfate (Morphine Sulfate) 2 mg IVP Q2H PRN PRN Reason: Chest Pain Stop: 12/22/17 14:33 Last Admin: 06/23/17 21:20 Dose: 2 mg Nicotine (Nicoderm) 21 mg TD DAILY [facility] PRN Reason: Protocol Stop: 12/22/17 14:46 Last Admin: 06/24/17 08:52 Dose: 21 mg Nitroglycerin (Nitroglycerin) 0.4 mg SL Q5MIN PRN PRN Reason: Chest Pain Stop: 12/22/17 14:33 Ondansetron HCl (Zofran) 4 mg IVP Q6HR PRN; Protocol PRN Reason: Nausea And Vomiting Stop: 12/23/17 16:28 Ticagrelor (Brilinta) 90 mg PO BID [facility] Stop: 12/23/17 21:01 Last Admin: 06/24/17 08:52 Dose: 90 mg - Imaging and Cardiology Echo: report reviewed Cardiac cath: report reviewed Other Results: 12 hour tele: avg HR=79 SR. No events noted. - EKG Interpretation EKG results cardiology: personally reviewed Consult Discharge Plan - Plan Referrals: Scott Rolon MD [Primary Care Provider] -
[2017-06-24] MEDS ORDERED: Metoprolol XL (24 HR) Succ 25 MG TAB.ER.24H PO SCH (11:15)
[2017-06-24 11:18] VITALS: BP 138/78
--- NOTE | 2017-06-24 11:29 | Discharge Summary ---
Date of Encounter: 06/24/17 Time of Encounter: 11:29 - Discharge Diagnosis (1) Unstable angina Priority: Primary Status: Acute Comments: admitted with unstable angina, troponin 0.04. TTE 06/23/17: LVEF 60%, moderate LVDD, mild-moderate MR, normal wall motion. C 06/23/17: s/p successful PTCA/OMAR mLAD; otherwise mild, non-obstructive CAD. Post PCI discharge instructions discussed with patient per Cardiology including care of site and importance of uninterrupted DAPT (asa + brilinta) for a minimum of 1 year. 30-day supply card of brilinta provided. Add BB, statin. Cardiac rehab consulted. Follow-up in 5-7 days with [facility] (appointment coordinated per Cardiology). (2) COPD (chronic obstructive pulmonary disease) Priority: Primary Status: Acute Comments: per hx. Current smoker. No evidence of exacerbation. Qualifiers: COPD type: chronic bronchitis Chronic bronchitis type: mixed simple and mucopurulent Qualified Code(s): J41.8 - Mixed simple and mucopurulent chronic bronchitis (3) Tobacco abuse Priority: Primary Status: Acute Comments: current smoker; cessation advised but not likely Hospital course: See assessment and plan for hospital course. Discharge discussed with: patient, family Time spent discussing smoking cessation with patient: 3 to 10 minutes - Time Spent with Patient Total time spent providing and/or coordinating discharge services: - Discharge Medications Prescriptions: Aspirin 81 mg PO DAILY #30 tab.chew Atorvastatin [Lipitor] 40 mg PO HS #30 tablet Metoprolol XL (24 HR) Succ [Toprol Xl] 25 mg PO DAILY #30 tab.er.24h Ticagrelor [Brilinta] 90 mg PO BID #60 tablet Home Medications: Aspirin 81 mg PO DAILY #30 tab.chew 06/24/17 [Rx] Atorvastatin [Lipitor] 40 mg PO HS #30 tablet 06/24/17 [Rx] Metoprolol XL (24 HR) Succ [Toprol Xl] 25 mg PO DAILY #30 tab.er.24h 06/24/17 [ Rx] Ticagrelor [Brilinta] 90 mg PO BID #60 tablet 06/24/17 [Rx] Allergies/Adverse Reactions: 3 Allergy/AdvReac Type Severity Reaction Status Date / Time No Known Allergies Allergy Verified 07/01/16 14:06 Date of admission: 06/23/17 16:26 Primary care physician: Scott Rolon MD Consults: 06/23/17 16:27 Consult to Cardiac Rehabilitation-Phase1 [CONS] Routine Comment: Reason for Consult: post op PCI Call Completed: Yes Discharging clinician: Umm Mederos Anticipated date of discharge: 06/24/17 - Constitutional Vitals: Temp Pulse Resp BP Pulse Ox 97.4 F L 74 18 138/78 99 06/24/17 11:17 06/24/17 11:17 06/24/17 11:17 06/24/17 11:17 06/24/17 08:00 General appearance: Present: cooperative, A&O X 3, pleasant - Head Head exam: Present: atraumatic, normocephalic - Eye Eye exam: Present: PERRL, conjuntiva pink, sclera anicteric Pupils: Present: PERRL - Neck Neck exam general surgery: Present: supple, trachea midline. Absent: lymphadenopathy - Respiratory Respiratory exam: Present: CTAB. Absent: accessory muscle use, rales, rhonchi, wheezes - Cardiovascular Cardiovascular exam: Present: RRR, +S1, +S2. Absent: diastolic murmur, gallop, rubs, systolic murmur - GI/Abdominal GI/Abdominal exam: Present: normal bowel sounds, soft, no peritoneal signs. Absent: distended, tenderness - Extremities Exam Extremities exam: Present: warm, radial pulses palpable and symmetrical. Absent : calf tenderness, cyanotic, pedal edema - Neurological Exam Neurological exam: Present: CN II-XII intact, oriented X3, no focal deficits. Absent: pronater drift, facial droop, speech deficit - Skin Skin exam: Present: dry, intact - Patient Status Disposition: Home, Self-Care Condition: Good Functional capacity at discharge: independent ambulation Overall status at discharge: patient is back to baseline - Discharge Instructions Instructions: Metoprolol (By mouth), Aspirin (By mouth), Atorvastatin (By mouth ), Coronary Artery Disease (DC), Ticagrelor (By mouth) Follow Up With: Scott Rolon MD [Primary Care Provider] - (Please call for follow-up within 1-2 weeks ) Additional Instructions: RISK FACTORS: STOP SMOKING: If you smoke, STOP. Smoking or tobacco use significantly increases your risk of heart disease because nicotine causes the arteries to narrow or constrict. It also causes fats to stick to the artery. Your chances of having a heart attack are greatly increased if you continue to smoke. For more information, call the education line for smoking cessation [id number] EAT A LOW FAT/CHOLESTEROL/SODIUM DIET: This diet may help reduce your chances of having a heart attack. LIFTING: With affected extremity: Avoid bending, pushing off and lifting more than 2 pounds for 24 hours The following 48 hours, avoid lifting anything more than 5 pounds Avoid strenuous activity or repetitive motions ACTIVITY: You may walk or climb stairs as tolerated You can resume sexual activity as tolerated In general, you are encouraged to engage in a minimum of 30 minutes or more of moderate intensity physical activity, such as brisk walking, daily or at least 3 -4 times weekly BATHING Do not submerge the site into water (bath tub, hot tub, swimming pool, dishes) for 1 week. This can be a source for infection into the blood stream. You may shower after 24 hours SITE CARE: After 24 hours, you may remove the dressing and leave the site open to air. Keep the site clean and dry. Clean gently and pat dry. You can expect bruising and tenderness that gradually resolve within a week or two. Return to work as instructed per your physician Resume driving as instructed per physician Keep all scheduled follow up appointments Resume medications as instructed IMPORTANT: If prescribed a Platelet Aggregation Inhibitor such as, Plavix, Brilinta or Effient: Duration of therapy is minimum one year These medications are often used in combination with Aspirin in prevention of future heart attacks Never discontinue unless consult with your Customs Import Specialist STROKE (CVA) Risk factors for a stroke are: Age, cigarette smoking, diabetes, excessive alcohol consumption, family history, high blood pressure, overweight, physical inactivity, prior stroke, heart attack, diagnosis of carotid artery stenosis or other artery disease. Warning signs: Sudden numbness or weakness of the face, arm or leg; especially on one side of the body, sudden confusion, trouble speaking or understanding, sudden trouble seeing in one or both eyes, sudden trouble walking, dizziness, loss of balance or coordination, sudden severe headache with no cause. Call 911 or go to the Emergency Room. CONGESTIVE HEART FAILURE: If you have been diagnosed with Congestive Heart Failure (CHF) and your symptoms return, make an appointment with your physician Weigh yourself daily. Notify your physician if you have a weight gain of two or more pounds in one day or five or more pounds in one week. If you experience any difficulty breathing, please call 911 BLEEDING: Although the risk of bleeding is minimal, it can happen. If you have any bleeding from the site, apply firm pressure above the puncture site for 10-15 minutes. If the bleeding does not stop, continue manual pressure and call 911 Contact [facility] ( ) if: You develop a fever greater than 101 degrees Fahrenheit Your site becomes reddened or has any drainage You have an increase in pain or burning at the site or if a large knot forms at the site. If you experience chest pain, shortness of breath, dizziness, or extreme tiredness, stop the activity and rest. Please notify [facility] office if you experience any of these symptoms and they are not relieved by rest please call 911! - Diet and Activity Activity: as per the cardiac rehab, increase activity as tolerated Diet: low fat, low cholesterol
--- NOTE | 2017-06-24 17:20 | Electrocardiograph Report ---
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
--- NOTE | 2017-06-24 19:59 | Electrocardiograph Report ---
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
== END 2017-06-24 13:30 | disposition home or self-care (01) | DRG 175 ==
LOC: 3BNU 10:09 → EMEROO 10:09 → 3BNU 13:14
PROVIDERS: ADMIT Hospitalist; ATTEND Registered Nurse